=== PATIENT | male | born 1955 | race Caucasian/White ===

== ENCOUNTER 2016-11-06 09:55 | Inpatient (IN) | payer BC ==
--- NOTE | 2016-10-03 14:36 | DIAGNOSTIC IMAGING REPORT ---
CHEST 2 VIEWS ROUTINE CLINICAL HISTORY: Preoperative chest COMPARISON STUDY: 11/24/2015 FINDINGS: The cardiac and mediastinal contours are normal. There is no evidence of focal pulmonary consolidation. There is no evidence of failure. No pleural effusions are visualized.[ IMPRESSION: No active disease in the chest. Electronically signed by: Rocky Hunt M.D. 10/03/2016 2:34 PM
[2016-10-03 15:38] LABS: BASO % 0.5 %; BASO ABS # 0.04 K/uL (0-0.2); COMPLETE YES; EOS % 6.2 %; HEMATOCRIT 35.6 % (42-52); IG% 0.3 %; LYMPH % 21.3 %; LYMPH ABS # 1.61 K/uL (1.2-3.4); MEAN CELL VOLUME 85.6 fL (80-100); MEAN CORPUSCULAR HEMOGLOBIN 27.4 pg (25-34); MEAN PLATELET VOLUME 10.5 fL (7.4-10.4); NEUT % 60.7 %; PLATELET COUNT 179 K/uL (130-400); RED BLOOD COUNT 4.16 M/uL (4.7-6.1); WHITE BLOOD COUNT 7.56 K/uL (4.8-10.8)
[2016-10-03 15:41] LABS: URINE APPEARANCE CLEAR (CLEAR); URINE BILIRUBIN NEG (NEG); URINE COLOR YELLOW; URINE NITRITE NEG (NEG); URINE SPECIFIC GRAVITY 1.015 (1.000-1.030); UROBILINOGEN NEG (NEG)
[2016-10-03 15:43] LABS: MANUAL MICROSCOPIC REQUIRED? NO; REVIEW REQ? NO
[2016-10-03 15:58] LABS: PARTIAL THROMBOPLASTIN RATIO 1.1; PROTHROMBIN TIME (PATIENT) 10.3 SECONDS (9.0-12.0)
[2016-10-03 16:07] LABS: BLOOD UREA NITROGEN 25 mg/dl (7-18); BUN/CREATININE RATIO 16.5 (10-20); CARBON DIOXIDE 25 mmol/L (21-32); CHLORIDE 109 mmol/L (98-107); GLUCOSE 91 mg/dl (70-99); POTASSIUM 3.9 mmol/L (3.5-5.1); SODIUM 143 mmol/L (136-145)
[2016-10-10 15:00] VITALS: BMI 38.0
--- NOTE | 2016-11-01 13:27 | HISTORY & PHYSICAL EXAMINATION ---
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 HISTORY OF PRESENT ILLNESS: Mick is a very pleasant 61-year-old male who underwent a left total knee arthroplasty on 12/10/2015. He was initially doing very well with it. Unfortunately, he was forced to have major dental work done 3 weeks after the procedure. 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 On 03/01/2016, he underwent irrigation and debridement with poly exchange of the left knee. He was started on IV antibiotics. Unfortunately, he continued to have a lot of knee pain. He came back to my office with obvious septic loosening of the complements. On 09/16/2016, he then underwent a removal of components and placement of an antibiotic spacer to the left knee. He was started on IV antibiotics and followed up with infectious disease. He was on the IV antibiotics for several months and switched to p.o. antibiotics. After 3 months of antibiotic treatment, his knee was looking good so the antibiotics were stopped. He went on a 3 week holiday. He was not having any recurrence of symptoms. He says he was not having any pain in his knee. He was able to move with the articulating spacer. He has now elected to proceed with a revision to a total knee arthroplasty. PAST MEDICAL HISTORY: Significant for hypertension, prostate cancer, ulcers, and kidney stones. PAST SURGICAL HISTORY: Significant for surgery of the prostate, a complete left meniscectomy, a left total knee arthroplasty in November 2015, and I\T\D poly exchange to the left knee on 03/01/2016 and a removal of components and application of a cement spacer in July 2016. ALLERGIES: None. MEDICATIONS: Include Zestril 20 mg daily, Prilosec 20 mg daily, vitamin C 2000 mg daily. FAMILY HISTORY: Noncontributory. SOCIAL HISTORY: He is normally independent and ambulating without assistance. REVIEW OF SYSTEMS: He complains of left knee pain. All other pertinent review of systems is negative. PHYSICAL EXAMINATION: GENERAL: He is awake, alert and oriented x3. He is in no apparent distress. He is very pleasant. HEENT: Pupils equal, round and reactive to light. Extraocular motion intact. Oral mucosa is pink and moist. HEART: Regular rate per radial pulse. LUNGS: Sandhya symmetrically bilaterally with no audible breath sounds. ABDOMEN: Soft, nontender, nondistended. MUSCULOSKELETAL: On physical examination of his left knee, he still ambulates with a crutch. The incisions are all well healed. There are no signs of active infection. He has good motion from about 10-80 degrees. There is crepitus with range of motion from the cement spacer. LABS: His final sed rate was 50, and his final CRP is 28.9 and this is where they were trending for the last couple of blood tests. 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 PLAN: Will proceed with a revision left total knee arthroplasty. We will get frozen sections during the procedure to make sure there is no infection present before we place the final components. Postoperatively, he will be placed on aspirin for DVT prophylaxis and kept in the hospital for IV antibiotics and postoperative medical management.
[2016-11-06] VITALS (7 sets, daily range): BP systolic 113–148; BP diastolic 72–89; PULSE 74–85; TEMP 36.2–36.8; O2SAT 97–100; Ht 162.6 cm; Wt 102.6 kg
[~2016-11-06] VITALS: Ht 162.6 cm; Wt 102.6 kg
[~2016-11-06 09:55] MED LIST: ACETAMINOPHEN 500 MG TAB PO SCH; ASCO10003 PO; ATEN50TA8 PO; CEFAZOLIN 2000 MG/60 ML D5W 60 ML IV SCH; FAMOTIDINE 20 MG TAB PO SCH; FERR1TAB13 PO; GABAPENTIN 300 MG CAP PO SCH; LACTATED RINGER'S 1000ML 1,000 ML IV SCH; LACTATED RINGER'S 1000ML IV SCH; LISI-725 PO; MULT-506 PO; PRLSR20 PO; ROPIVACAINE 5MG/ML 30 ML 150 MG, BUPIVACAINE/EPINEPHR 0.5% MPF 30 ML, KETOROLAC TROMETH... INFIL SCH; TRANEXAMIC ACID INJ 1,000 MG in SODIUM CHLORIDE 0.9% 100ML 100 ML IV SCH
[2016-11-06] MEDS ORDERED: TOBRAMYCIN SULF 40 MG/ML 2 ML VIAL ONE (11:30)
[2016-11-06] MEDS ORDERED: VANCOMYCIN HCL 1000MG/20ML VIAL ONE ×2 (11:30→11:39)
[2016-11-06] MEDS: TRANEXAMIC ACID INJ 1,000 MG in SODIUM CHLORIDE 0.9% 100ML 100 ML IV SCH ×2 (12:32→20:43)
[2016-11-06] MEDS ORDERED: MIDAZOLAM HCL 1 MG/ML 2ML VIAL ONE ×2 (12:40→12:44)
[2016-11-06] MEDS ORDERED: PROPOFOL IV EMULSION 10 MG/ML 20 ML VIAL IV ONE ×5 (12:43→16:48)
[2016-11-06] MEDS ORDERED: LIDOCAINE HCL 2% 2 ML VIAL (20MG/ML) ONE (12:43)
[2016-11-06] MEDS ORDERED: FENTANYL CITRATE INJ 50 MCG/1 ML 2 ML VIAL ONE ×3 (12:44→16:32)
--- NOTE | 2016-11-06 12:44 | History & Physical Bridge Note ---
H&P Re-Evaluation Bridge Note: I have examined the patient, reviewed the History & Physical and in the interval since the performance of the History & Physical I have noted the following changes of clinical significance: No changes noted
[2016-11-06] MEDS ORDERED: ROPIVACAINE 0.5% 5 MG/ML 30 ML VIAL ONE (12:51)
[2016-11-06] MEDS ORDERED: LIDOCAINE/EPINEPHRINE 2% 1:200,000 20 ML SDV ONE (12:51)
[2016-11-06] MEDS ORDERED: BUPIVACAINE 0.5 % 5 MG/1 ML PF 10ML VIAL ONE (12:54)
[2016-11-06] MEDS ORDERED: BUPIVACAINE 0.25% 30 ML VIAL ONE (12:59)
[2016-11-06] MEDS ORDERED: EpHEDrine SULFATE INJ 50 MG/ML AMP ONE (13:16)
[2016-11-06] MEDS ORDERED: BACITRACIN 50000 UNIT VIAL ONE (13:39)
[2016-11-06] MEDS ORDERED: ORTHO JOINT ANESTHETIC ONE (14:00)
[2016-11-06] MEDS ORDERED: VANCOMYCIN 1GM/270ML NSS ONE (14:04)
[2016-11-06] MEDS ORDERED: HYDROmorphone INJ 1 MG/ML SYR IV PRN (14:45)
[2016-11-06] MEDS ORDERED: FENTANYL CITRATE INJ 50 MCG/1 ML 2 ML VIAL IV PRN (14:45)
[2016-11-06] MEDS ORDERED: LABETALOL HCL IV 5 MG/ML 20ML IV PRN (14:45)
[2016-11-06] MEDS ORDERED: MEPERIDINE HCL 25 MG/ML CARP IV PRN (14:45)
[2016-11-06] MEDS ORDERED: ATROPINE SULFATE 0.1 MG/ML 5ML SYR IV PRN (14:45)
[2016-11-06] MEDS ORDERED: ONDANSETRON INJ 2 MG/ML 2 ML VIAL IV PRN ×2 (14:45→17:30)
[2016-11-06] MEDS ORDERED: EpHEDrine SULFATE INJ 50 MG/ML AMP IV PRN (14:45)
[2016-11-06] MEDS ORDERED: ONDANSETRON INJ 2 MG/ML 2 ML VIAL ONE (15:19)
[2016-11-06] MEDS ORDERED: BACITRACIN 50000 UNIT VIAL IR ONE (16:54)
[2016-11-06] MEDS ORDERED: VANCOMYCIN HCL 1000MG/20ML VIAL TOP ONE (16:54)
--- NOTE | 2016-11-06 17:19 | [facility] Post Operative Brief Note ---
Immediate Operative Summary Operative Date Nov 06, 2016. Pre-Operative Diagnosis Left Infected Total Knee Arthroplasty with Cement Spacer Post-Operative Diagnosis Same as Preop Procedure(s) Performed Left Removal Antibiotic Spacer with Revision of Total Knee Arthroplasty Surgeon Dr. Clemons Cellophane Worker Surgeon(s) Tevin Garsia PA-C Estimated Blood Loss 100 ML Findings as above Specimens Microbiology 1. synovial fluid left knee # 1 2. synovial fluid left knee # 2 Frozen 1. Left Knee Synovium x 4 Complication(s) None Disposition Recovery Room / PACU
[2016-11-06] MEDS ORDERED: SOD PHOSPHATE/SOD BIPHOSPHATE ENEMA 132 ML BTL PR PRN (17:30)
[2016-11-06] MEDS ORDERED: BISACODYL 10 MG SUPP PR PRN (17:30)
[2016-11-06] MEDS ORDERED: METOCLOPRAMIDE HCL INJ 5 MG/ML 2 ML VIAL IV PRN (17:30)
[2016-11-06] MEDS ORDERED: MAGNESIUM HYDROXIDE SUSP 30 ML UDC PO PRN (17:30)
[2016-11-06] MEDS ORDERED: MoRPHine SULFATE 2 MG/ML CARP IV PRN (17:30)
[2016-11-06] MEDS ORDERED: OXYCODONE HCL IR 5 MG TAB (IMMEDIATE RELEASE) PO PRN (17:30)
--- NOTE | 2016-11-06 18:02 | DIAGNOSTIC IMAGING REPORT ---
LEFT KNEE 1 OR 2 VIEWS ROUTINE CLINICAL HISTORY: The arthroplasty COMPARISON: 07/17/2016 DISCUSSION: There are postsurgical changes of a long stem total left knee arthroplasty. No acute fractures are visualized. The femoral and tibial components appear well seated. There is air within the soft tissues consistent with recent surgery. There is an overlying surgical drain. IMPRESSION: Postsurgical changes of a long stem total left knee arthroplasty Electronically signed by: Rocky Hunt M.D. 11/06/2016 6:01 PM Dictated Date/Time: 11/06/2016 6:00 PM
--- NOTE | 2016-11-06 18:10 | Anesthesiology Progress Note ---
Anesthesia Post Op Note Date & Time Nov 06, 2016 at 18:09 Vital Signs Pain Intensity: 2 Vital Signs Past 12 Hours Date Time Temp Pulse Resp B/P Pulse Ox O2 Delivery O2 Flow Rate FiO2 11/06/16 18:03 101/76 11/06/16 18:00 104 25 11/06/16 18:00 103 25 112/77 97 11/06/16 17:58 154/103 11/06/16 17:55 105 20 11/06/16 17:55 20 11/06/16 17:53 137/98 11/06/16 17:50 20 11/06/16 17:50 108 20 11/06/16 17:49 125/108 11/06/16 17:45 23 11/06/16 17:45 112 23 11/06/16 17:45 115 16 143/85 99 Nasal Cannula 2 11/06/16 10:53 36.8 74 18 148/85 99 Room Air Notes Mental Status: alert / awake / arousable, participated in evaluation Pt Amnestic to Procedure: Yes Nausea / Vomiting: adequately controlled Pain: adequately controlled Airway Patency, RR, SpO2: stable & adequate BP & HR: stable & adequate Hydration State: stable & adequate Neuraxial Anesthesia: was administered, sensory block is resolving Anesthetic Complications: no major complications apparent Pt doing well.
[2016-11-06] MEDS ORDERED: NURSING VERBAL MED ORDER ONE (18:45)
[2016-11-06] MEDS ORDERED: LABETALOL HCL IV 5 MG/ML 20ML IV ONE (19:00)
[2016-11-06] MEDS: D5W AND 1/2NSS + 20MEQ KCL 1,000 ML IV SCH (20:44)
[2016-11-06] MEDS: SENNA 8.6 MG TAB PO SCH (20:48)
[2016-11-06] MEDS: ASPIRIN 325 MG ECTAB PO SCH (20:48)
[2016-11-06] MEDS: DOCUSATE SODIUM 100 MG CAP PO SCH (20:49)
[2016-11-06] MEDS: KETOROLAC TROMETHAMINE 30 MG/ML VIAL IV. SCH (20:50)
[2016-11-06] MEDS: ACETAMINOPHEN 500 MG TAB PO SCH (22:32)
[2016-11-07] MEDS ORDERED: VANCOMYCIN INJ 1,500 MG in SODIUM CHLORIDE 0.9% 500ML 500 ML IV SCH (02:00)
[2016-11-07] MEDS: KETOROLAC TROMETHAMINE 30 MG/ML VIAL IV. SCH ×4 (02:58→20:02)
[2016-11-07 03:07] VITALS: BP 99/59; PULSE 67; TEMP 36.4; O2SAT 100
[2016-11-07] MEDS: D5W AND 1/2NSS + 20MEQ KCL 1,000 ML IV SCH ×2 (05:10→09:07)
[2016-11-07] MEDS: ACETAMINOPHEN 500 MG TAB PO SCH ×3 (05:11→21:40)
--- NOTE | 2016-11-07 07:02 | OPERATIVE REPORT ---
DATE OF OPERATION: 11/06/2016 PREOPERATIVE DIAGNOSIS: Antibiotic cement spacer in the left knee. POSTOPERATIVE DIAGNOSIS: Same. PROCEDURE: Removal of antibiotic cement spacer and revision total knee arthroplasty of the left knee. SURGEON: Dr. Matthias Clemons. BLOOD BANK SPECIALIST: Tevin Henriquez PA-C, whose assistance was necessary for positioning the leg and helping with instrumentation. ANESTHESIA: Spinal with a left adductor nerve block. COMPLICATIONS: None. CONDITION: Stable to PACU. IMPLANTS USED: I used a Biomet 360 revision system with a 65 left femur with two 5 mm posterior augments and a size 16 x 120 stem without an offset. It was a 71 mm tibia with medial and lateral 5 mm augments, a 2.5 mm offset a small cruciate wing and a 16 x 80 mm stem. The poly was a constrained 16. INDICATIONS: Mick is a 61-year-old male, who underwent a primary total knee replacement a year ago. After having some dental work, he then required an I\T\D and poly exchange, unfortunately he continued to be infected. He underwent an excision arthroplasty with application of cement spacer back in July. He did well on the IV antibiotics. After an antibiotic holiday his blood counts look good and his knee looked good. There were no signs of infection, so we elected to proceed with a removal of cement spacer and conversion to a total knee arthroplasty. On 11/06/2016, he arrived at [facility] for the above procedure. He was seen in the preoperative holding area and the operative extremity was identified and signed. He was given a spinal anesthetic and a left adductor nerve block. He was then taken back to the operating room, laid on the table in supine position and given basic sedation. The left knee was prepped and draped in sterile fashion. Time-out was done and the patient and operative extremity was properly identified. A midline incision was made directly over the old incision site. Dissection was taken down through the fascia and a medial parapatellar approach was used. Immediate cultures were taken from the fluid within the knee. Four different sites of synovial and soft tissue cultures were taken and sent down to pathology for frozen sections. Time was then spent removing all scar tissue from medial and lateral gutters. The cement spacers were then removed and the knee was flexed. The pathology report came back less than 5 polys per high power field. There were no signs of infection, so we decided to proceed. The tibial canal was opened up with sequential reamers. The tibia measured to be a 71 mm and 2.5 also seemed to be the best fit. Two 5 mm augments seemed to restore the joint line. The tibial trial was put together and placed. Attention was then turned to the femur. Sequential reaming up to a size 16 reamer was done. I distal femoral cutting block was used to freshen up the distal femoral cut and the chamfer and the anterior and posterior cuts were all freshened up as well. A 65 left femur with 2 posterior 5 mm augments seemed to be the best fit. There was a straight shot down the canal, so a single 120 mm stem was used. The trials were put together and placed. A 16 mm poly was used and it seemed to be a good fit. The knee was brought through a full range of motion and felt to be stable. All trials were then removed. The final components were put together on the back table. The knee was then irrigated with 3 liters of normal saline solution with bacitracin. Surrounding soft tissues were injected with 100 mL of an orthopedic pain control cocktail. The final components were then cemented in place with Palacos G cement with a bottle of vancomycin for each packet used. Several different polyethylene trials were used and a size 16 constrained poly seemed to be the best fit. The final poly was snapped into place and the anterior bar was locked. The knee was brought through a full range of motion and felt to be stable. The knee was once again irrigated with clean saline. Two drains were placed. The patella seemed to be scarred and was not resurfaced. The extensor mechanism was then closed with #2 Vicryl in the superior quadrant of the patella and #1 Vicryl for the remainder of the extensor mechanism. The skin was closed with 2-0 Vicryl, 3-0 V-Loc suture and a Prineo dressing. He was then placed in a soft dressing, transferred to a litter and taken to the postanesthesia care unit in stable condition. He tolerated the procedure well. I attest to the content of the Intraoperative Record and any orders documented therein. Any exceptio ns are noted below.
[2016-11-07 07:03] VITALS: BP 115/69; PULSE 71; TEMP 36.5; O2SAT 99
--- NOTE | 2016-11-07 07:19 | PROGRESS NOTE ---
DATE: 11/07/2016 CHIEF COMPLAINT: Status post revision left total knee arthroplasty postop day #1. PROGRESS: Mick was seen and examined at bedside today. Overall, he is doing extremely well. He can easily do a straight leg raise. He says he has very little pain in the left knee. He has been up walking around the nurses' station and has no other complaints. PHYSICAL EXAMINATION: LEFT KNEE: The dressing is clean and dry and the drain is to suction. He has active dorsiflexion and plantarflexion of his left ankle and sensation is intact throughout. LABS: This morning are still pending. Vital signs are all stable on room air. He is voiding on his own and his Hemovac put out about 100 mL. X-rays of the left knee show the prosthesis to be in anatomic alignment without any evidence of fracture, dislocation or loosening. IMPRESSION: Status post revision left total knee arthroplasty postop day #1. PLAN: At this point, he is doing very well. He can continue to be up and ambulating. In therapy they will be working with him today for flexion of his knee. Tomorrow I plan to change the dressing, pull the drain and discharge him to home if he is doing okay.
[2016-11-07 07:37] LABS: HEMATOCRIT 28.7 % (42-52); MEAN CELL VOLUME 86.7 fL (80-100); MEAN CORPUSCULAR HEMOGLOBIN 28.1 pg (25-34); MEAN CORPUSCULAR HGB CONC 32.4 g/dl (32-36); MEAN PLATELET VOLUME 10.1 fL (7.4-10.4); PLATELET COUNT 142 K/uL (130-400); RED BLOOD COUNT 3.31 M/uL (4.7-6.1); WHITE BLOOD COUNT 9.27 K/uL (4.8-10.8)
[2016-11-07 07:56] LABS: BUN/CREATININE RATIO 17.6 (10-20); POTASSIUM 4.5 mmol/L (3.5-5.1)
[2016-11-07] MEDS: ASPIRIN 325 MG ECTAB PO SCH ×2 (08:23→20:45)
[2016-11-07] MEDS: FERROUS SULFATE 325 MG TAB PO SCH ×2 (08:23→18:22)
[2016-11-07] MEDS: DOCUSATE SODIUM 100 MG CAP PO SCH ×2 (08:23→20:47)
[2016-11-07] MEDS: PANTOprazole SOD 40 MG TAB PO SCH (08:24)
[2016-11-07] MEDS: MULTIVITAMIN TAB PO SCH (08:24)
[2016-11-07] MEDS: LISINOPRIL 20 MG TAB PO SCH (08:25)
[2016-11-07] MEDS: ASCORBIC ACID 500 MG TAB PO SCH (08:25)
[2016-11-07 11:39] VITALS: BP 135/79; PULSE 72; TEMP 36.5; O2SAT 100
[2016-11-07 15:14] VITALS: BP 117/73; PULSE 70; TEMP 36.4; O2SAT 100
[2016-11-07 19:17] VITALS: BP 130/78; PULSE 77; TEMP 36.8; O2SAT 100
[2016-11-07] MEDS: SENNA 8.6 MG TAB PO SCH (20:47)
[2016-11-07 23:00] VITALS: BP 119/73; PULSE 74; TEMP 36.8; O2SAT 99
[2016-11-08] MEDS: KETOROLAC TROMETHAMINE 30 MG/ML VIAL IV. SCH ×3 (01:40→07:36)
[2016-11-08] MEDS: ACETAMINOPHEN 500 MG TAB PO SCH (05:37)
[2016-11-08 05:55] VITALS: BP 151/83; PULSE 72; TEMP 36.7; O2SAT 99
--- NOTE | 2016-11-08 06:56 | Discharge Instructions ---
Discharge Instructions Admission Reason for Admission: Infection Of Total Knee Replacement Discharge Discharge Diagnosis / Problem: Revision Left Total Knee Discharge Goals Goal(s): Decrease discomfort, Improve function Activity Recommendations Activity Limitations: resume your previous activity Shower/Bathe: may shower/bathe in 3 days leave glue dressing in place, follow-up in 2 weeks . Current Hospital Diet Patient's current hospital diet: Regular Diet Discharge Diet Recommended Diet: Regular Diet Procedures Procedures Performed: Left Removal Antibiotic Spacer with Revision of Total Knee Arthroplasty Pending Studies Studies pending at discharge: no Medical Emergencies . Who to Call and When: Medical Emergencies: If at any time you feel your situation is an emergency, please call 911 immediately. . Non-Emergent Contact Non-Emergency issues call your: Surgeon Call Non-Emergent contact if: wound has increased drainage, wound has increased redness . "Provider Documentation" section prepared by Matthias Clemons. VTE Core Measure Inpt VTE Proph given/why not?: Other Anticoagulation (Aspirin 325 twice a day for 6 weeks)
--- NOTE | 2016-11-08 07:21 | DISCHARGE SUMMARY ---
DISCHARGE DIAGNOSIS: Infected left total knee arthroplasty with the cement spacer. POSTOPERATIVE DIAGNOSIS: Same. PROCEDURE: Removal of cement spacer and implantation of left total knee arthroplasty on 11/06/[address] Matthias Clemons. DISCHARGE INSTRUCTIONS AND MEDICATIONS: 1. Percocet 5/325 as needed for pain. 2. Aspirin 325 mg twice a day for 6 weeks. 3. EKATERINA hose stockings for 6 weeks. 4. Start outpatient physical therapy this week. 5. Follow up with Dr. Clemons in 2 weeks. 6. Call the office of Dr. Clemons with any questions or concerns. 7. Vitamin C 2000 mg daily. 8. Tenormin 50 mg daily. 9. Ferrous sulfate 1 tab twice a day. 10. Zestril 20 mg daily. 11. Daily multivitamin. 12. Prilosec 20 mg daily. HOSPITAL COURSE: Mick is a pleasant 61-year-old male who underwent a primary knee replacement a year ago. Unfortunately, he had an infection and underwent a 2-stage revision. The first stage was done in July 2016. He was on long-term antibiotics. The infection was cleared, he was off the antibiotics and the infection did not return. He came back to the hospital for removal of the cement spacer and implantation of a total knee arthroplasty. On 11/06/2016, he arrived at [facility] and underwent removal of the cement spacer and implantation of total knee arthroplasty without complications. Postoperatively, he was started on aspirin 325 mg for DVT prophylaxis and given vancomycin. He was discharged to general orthopedic floor. His hospital course was uneventful. On postop day #1, his H\T\H was stable at 9.3 and 28.7. His cultures all came back no growth to date. He was doing very well. He was having very little pain in his knee and ambulating around the nurse's station. He was working hard with physical therapy. On postop day #2, he continued to do well. He was not having much pain in his knee: The dressings were changed, the drain was pulled, and he was subsequently discharged to home with the above instructions.
--- NOTE | 2016-11-08 07:25 | PROGRESS NOTE ---
DATE: 11/08/2016 CHIEF COMPLAINT: Status post revision left total knee arthroplasty postop day #2. PROGRESS: Mick was seen and examined at bedside today. Overall, he is doing fairly well. He was up ambulating well yesterday with physical therapy. He says he really has very little pain in his knee. He has had no other medical problems or complaints and he is looking forward to going home. PHYSICAL EXAMINATION: LEFT KNEE: The dressing has been changed. Prineo dressing is intact. Drains have been removed. His knee is in full extension. He has active dorsiflexion and plantarflexion of his left ankle. There are no signs of infection. LABS: His cultures have all come back no growth to date yet they are not final. His vital signs were all stable on room air. He is voiding on his own and has had 3 bowel movements. IMPRESSION: Status post revision left total knee arthroplasty postop day #2. PLAN: At this point, he is doing well and he is happy with his progress. He has been working well with physical therapy. He will stay on aspirin for DVT prophylaxis. He already has pain medications at home. I will discharge him to home later this morning.
[2016-11-08] MEDS: FERROUS SULFATE 325 MG TAB PO SCH (07:31)
[2016-11-08] MEDS: DOCUSATE SODIUM 100 MG CAP PO SCH (07:31)
[2016-11-08] MEDS: ASPIRIN 325 MG ECTAB PO SCH (07:31)
[2016-11-08] MEDS: ASCORBIC ACID 500 MG TAB PO SCH (07:32)
[2016-11-08] MEDS: MULTIVITAMIN TAB PO SCH (07:32)
[2016-11-08] MEDS: PANTOprazole SOD 40 MG TAB PO SCH (07:32)
[2016-11-08] MEDS: LISINOPRIL 20 MG TAB PO SCH (07:35)
[2016-11-08 09:33] VITALS: BP 151/83; PULSE 72; TEMP 36.7; O2SAT 99
--- NOTE | 2016-11-17 16:53 | OPERATIVE REPORT ---
DATE OF OPERATION: 11/06/2016 ADDENDUM Surgical assistance was provided by Dr. Blue Peterson MD. He was present from the beginning until the end of the case. His presence was necessary for expertise in revision knee arthroplasty. I attest to the content of the Intraoperative Record and any orders documented therein. Any exceptions are noted below. RICARDO
== END 2016-11-08 13:15 | disposition home or self-care (01) | DRG 468 ==
LOC: ENRESERVTM → ENRESERVDT → C.ACU 09:55 → C.3E 12:30
PROVIDERS: ADMIT Orthopaedic Surgery; ATTEND Orthopaedic Surgery
PROC: 0SRD0J9 Replacement of Left Knee Joint with Synthetic Substitute, Cemented, Open Approach (ICD-10-PCS; 2016-11-06)
PROC: 0SPD08Z Removal of Spacer from Left Knee Joint, Open Approach (ICD-10-PCS; principal; 2016-11-06 13:00)
DX: Z47.33 Aftercare following explantation of knee joint prosthesis (principal); I10 Essential (primary) hypertension; Z85.46 Personal history of malignant neoplasm of prostate; Z87.442 Personal history of urinary calculi; Z79.899 Other long term (current) drug therapy